=== PATIENT | female | born 1985 | race Caucasian/White ===

== ENCOUNTER 2016-07-26 06:27 | Emergency (ER) | payer OTHER ==
[2016-07-26 08:05] LABS: BILIRUBIN 1+ mg/dL (NEGATIVE); BLOOD 2+ Ery/uL (NEGATIVE); CLARITY SLIGHTLY HAZY (CLEAR); COLOR AMBER (YELLOW); GLUCOSE (U) NORMAL (NORMAL); KETONE (U) NEGATIVE (NEGATIVE); LEUKOCYTES NEGATIVE Leu/uL (NEGATIVE); NITRITE NEGATIVE (NEGATIVE); PROTEIN 1+ mg/dL (NEGATIVE); SPECIFIC GRAVITY >=1.030 (1.001-1.030); pH 5.5 (5.0-9.0)
[2016-07-26 09:04] LABS: BASOPHIL 0.3 % (0-2); EOSINOPHIL 1.7 % (0-5); HGB 15.3 g/dl (12.5-16.0); LYMPHOCYTE 29.3 % (15-48); MCH 32.2 pg (25.0-31.0); MCHC 34.8 g/dL (32.0-36.0); MCV 92.6 fL (78.0-100.0); MONOCYTE 5.9 % (0-12); MPV 10.9 fL (6.0-9.5); NEUTROPHIL 62.8 % (41-80); PLT 205 K/uL (150-400); RBC 4.75 M/uL (4.20-5.40); RDW 12.7 % (11.5-14.0); WBC 6.4 K/uL (4.0-10.5)
[2016-07-26 09:21] LABS: ALBUMIN 4.9 g/dL (3.5-5.0); BILIRUBIN - TOTAL 1.9 mg/dL (0.1-1.0); CREATININE 0.8 mg/dL (0.5-1.0); TOTAL PROTEIN 7.9 g/dL (6.4-8.3)
[2016-07-26 09:34] LABS: POTASSIUM 4.1 mmol/L (3.5-5.1)
[2016-07-26 10:19] LABS: BACTERIA 2+; CALCIUM OXALATE CRYSTALS MODERATE; MUCOUS MODERATE
== END 2016-07-26 11:51 | disposition home or self-care (01) ==
LOC: FER 06:27
PROVIDERS: Emergency Medicine; Emergency Medicine Emergency Medical Services
DX: N30.10 Interstitial cystitis (chronic) without hematuria (principal)
CPT/HCPCS: 36415; 80053; 81001; 85025; 87088; J1100; J1170; J1885; J2405; J2800

== ENCOUNTER 2016-08-09 14:11 | Emergency (ER) | payer OTHER ==
[2016-08-09 14:39] LABS: CLARITY HAZY (CLEAR); COLOR ORANGE (YELLOW); PROTEIN 2+ mg/dL (NEGATIVE)
[2016-08-09 14:40] LABS: BILIRUBIN NEGATIVE (NEGATIVE); BLOOD 1+ Ery/uL (NEGATIVE); GLUCOSE (U) NORMAL (NORMAL); KETONE (U) NEGATIVE (NEGATIVE); LEUKOCYTES 2+ Leu/uL (NEGATIVE); NITRITE POSITIVE (NEGATIVE)
[2016-08-09 14:42] LABS: BACTERIA 2+; URIC ACID CRYSTALS TRACE
== END 2016-08-09 15:33 | disposition home or self-care (01) ==
LOC: FER 14:11
PROVIDERS: Internal Medicine
DX: N30.90 Cystitis, unspecified without hematuria (principal); F17.210 Nicotine dependence, cigarettes, uncomplicated; Z90.710 Acquired absence of both cervix and uterus; Z98.890 Other specified postprocedural states; Z87.440 Personal history of urinary (tract) infections
CPT/HCPCS: 81001; 87076; 87088; 87186; 99283